=== PATIENT | female | born 1995 | race African-American/Black ===

== ENCOUNTER 2021-07-12 18:34 | Emergency (ER) | payer BC, SELFPAY ==
--- OUTSIDE RECORDS SUMMARY | 2021-07-12 18:37 | XMS REPORT | Continuity of Care Document ---
:1995 Author Organization [facility] Address [address] [place] [address] [address]. [address] [place] [address] Care Team Providers Name Role Phone TARUN Attending Clinician Unavailable TARUN Admitting Clinician Unavailable Payers Payer Name Policy Type Policy Number Effective Date Expiration Date S ource Problems This patient has no known problems. Allergies, Adverse Reactions, Alerts This patient has no known allergies or adverse reactions. Medications Ordered Filled Start Stop Current Ordering Indication Dosage Frequency Signature Comments Components Source Medication Medication Date Date Medication? Clinician (SIG) Name Name hydrocodone hydrocodone No hydrocodon [place] 5 5 e 5 da mg-acetamin mg-acetamin mg-acetami [facility] ophen 325 ophen 325 nophen 325 al mg tablet mg tablet mg tablet Health GIVE 1 GIVE 1 GIVE 1 [facility]re[facility] TABLET BY TABLET BY TABLET BY h MOUTH EVERY MOUTH EVERY MOUTH Program 6 HOURS 6 HOURS EVERY 6 NEEDED NEEDED HOURS (PAIN). (PAIN). NEEDED (PAIN). ibuprofen ibuprofen No ibuprofen [place] 600 mg 600 mg 600 mg da tablet GIVE tablet GIVE tablet [facility] 1 TABLET BY 1 TABLET BY GIVE 1 al MOUTH EVERY MOUTH EVERY TABLET BY Health 6 HOURS 6 HOURS MOUTH Ou treac NEEDED NEEDED EVERY 6 h (PAIN). (PAIN). HOURS Progr am NEEDED (PAIN). Tri-Lo-Esta Tri-Lo-Esta No Tri-Lo-Est [place] rylla 0.18 rylla 0.18 arylla d a mg/0.215 mg/0.215 0.18 [facility] mg/0.25 mg/0.25 mg/0.215 al mg-25 mcg mg-25 mcg mg/0.25 He alth tablet TAKE tablet TAKE mg-25 mcg Outre[facility] 1 TABLET BY 1 TABLET BY tablet h MOUTH EVERY MOUTH EVERY TAKE 1 Program DAY DAY TABLET BY MOUTH EVERY DAY Immunizations Ordered Immunization Filled Immunization Date Status Commen ts Source Name Name COVID-19, mRNA, COVID-19, mRNA, 2021-03-07 Completed Franklin wade LNP-S, PF, 100 LNP-S, PF, 100 16:07:58 [facility] mcg/0.5 mL dose mcg/0.5 mL dose Outr each Program (Moderna) (Moderna) COVID-19, mRNA, COVID-19, mRNA, 2020-05-26 Completed Franklin wade LNP-S, PF, 100 LNP-S, PF, 100 11:14:25 [facility] mcg/0.5 mL dose mcg/0.5 mL dose Outr each Program (Moderna) (Moderna) COVID-19, mRNA, COVID-19, mRNA, 2020-04-27 Completed Franklin wade LNP-S, PF, 100 LNP-S, PF, 100 13:27:16 [facility] mcg/0.5 mL dose mcg/0.5 mL dose Outr each Program (Moderna) (Moderna) Procedures This patient has no known procedures. Encounters Start End Encounter Admission Attending Care Care Encounter Source Date/Time Date/Time Type Type Clinicians Facility Department ID 2021-03-07 2021-03-07 Outpatient [facility] 113 [id number]- [place] 04:19:00 04:19:00 JIMMY [id number] [facility] 2021-03-07 2021-03-07 [facility] [place] - [id number] M [place] 00:00:00 00:00:00 Antwan Brand MD: [address] [facility] [place] [address] h , Ph. Program 2020-05-26 2020-05-26 Outpatient [facility] 113 [id number]- [place] 11:18:00 11:18:00 JIMMY [id number] [facility] 2020-05-26 2020-05-26 [facility] [place] - [id number] M [place] 00:00:00 00:00:00 Antwan Brand MD: [address] [facility] Yifan Cordero [place], [facility] [phone] h , Ph. Program 2020-04-27 2020-04-27 Outpatient [facility] [id number] [place] 02:40:00 02:40:00 JIMMY [id number] [facility] 2020-04-27 2020-04-27 [facility] [place] - [id number] [place] 00:00:00 00:00:00 Antwan Brand MD: [address] [facility] [place]order[place], [place] [address] h , Ph. Program 2020-04-24 2020-04-24 Outpatient [facility] [id number] [place] 01:57:00 01:57:00 JIMMY [id number] [facility] Results This patient has no known results.
--- NOTE | 2021-07-12 19:07 | ER ---
Nurse's Notes [facility] Name: Thea Maldonado Age: 26 yrs Sex: Female : 1995 Arrival Date: 07/12/2021 Time: 18:37 [address] [facility] MD: Diagnosis: Acute suppurative otitis media Presentation: 07/12 18:55 Chief complaint: Patient states: Right ear pain x 2 days and sore throat x 4 days. vg1 Denies NVD. Coronavirus screen: Vaccine status: Patient reports receiving the 2nd dose of the covid vaccine. Client denies travel out of the [place] in the last 14 days. Ebola Screen: Patient denies exposure to infectious person. Patient denies travel to an Ebola-affected area in the 21 days before illness onset. Initial Sepsis Screen: Does the patient meet any 2 criteria? No. Patient's initial sepsis screen is negative. Does the patient have a suspected source of infection? No. Patient's initial sepsis screen is negative. Risk Assessment: Do you want to hurt yourself or someone else? Patient reports no desire to harm self or others. Onset of symptoms was July 09, 2021. 18:55 Method Of Arrival: Ambulatory vg1 18:55 Acuity: GERMÁN 4 vg1 Triage Assessment: 18:56 General: Appears uncomfortable, Behavior is calm, cooperative. Pain: Complains of pain vg1 in right ear and throat Pain currently is 10 out of 10 on a pain scale. EENT: Throat is reddened. 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 - Social history:: Smoking status: Patient denies any tobacco usage or history of. Screenin:21 Abuse screen: Denies threats or abuse. Denies injuries from another. Nutritional ld1 screening: No deficits noted. Tuberculosis screening: No symptoms or risk factors identified. Fall Risk None identified. Assessment: 19:21 Reassessment: see triage assessment. ld1 Vital Signs: 18:55 BP 129 / 89; Pulse 80; Resp 16; Temp 98.8(O); Pulse Ox 100% ; Weight 71.21 kg; Height 5 vg1 ft. 7 in. (170.18 cm); Pain 10/10; 19:21 BP 121 / 88; Pulse 76; Resp 18; Pulse Ox 100% ; ld1 18:55 Body Mass Index 24.59 (71.21 kg, 170.18 cm) vg1 ED Course: 18:37 Patient arrived in ED. rg4 18:56 Triage completed. vg1 18:56 Arm band placed on. vg1 19:00 Strep swab sent to lab. vg1 19:06 Hammad Barraza PA is PHCP. jr8 19:06 Arley Gregg MD is Attending Physician. jr8 19:21 Patient has correct armband on for positive identification. Bed in low position. Call ld1 light in reach. secured entrance monitor on. Pulse ox on. NIBP on. 19:21 No provider procedures requiring assistance completed. Patient did not have IV access ld1 during this emergency room visit. Administered Medications: No medications were administered Medication: 19:21 VIS not applicable for this client. ld1 Outcome: 19:06 Discharge ordered by . jr8 19:21 Discharged to home ambulatory. ld1 19:21 Condition: stable 19:21 Discharge instructions given to patient, Instructed on discharge instructions, follow up and referral plans. medication usage, Demonstrated understanding of instructions, follow-up care, medications, Prescriptions given X 2. 19:22 Patient left the ED. ld1 Signatures: Hammad Barraza PA PA jr8 Pita Mixon rg4 Martha Mixon RN RN vg1 Meghan Wilder RN RN ld1
--- NOTE | 2021-07-12 19:08 | EDPHYS ---
Physician Documentation [facility] Name: Thea Maldonado Age: 26 yrs Sex: Female : 1995 Arrival Date: 07/12/2021 Time: 18:37 Bed Waiting Private MD: ED Physician Arley Gregg HPI: 07/12 19:13 This 26 yrs old Black Female presents to ER via Ambulatory with complaints of Ear Pain. jr8 19:13 The patient presents with pain, tenderness. The complaints affect the right ear. Onset: jr8 The symptoms/episode began/occurred acutely, today. Modifying factors: The symptoms are alleviated by nothing, the symptoms are aggravated by nothing. Associated signs and symptoms: The patient has no apparent associated signs or symptoms. Severity of symptoms: At their worst the symptoms were moderate in the emergency department the symptoms are unchanged. The patient has not experienced similar symptoms in the past. The patient has not recently seen a physician. 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 - Social history:: Smoking status: Patient denies any tobacco usage or history of. ROS: 19:13 Eyes: Negative for injury, pain, redness, and discharge, Neck: Negative for injury, jr8 pain, and swelling, Cardiovascular: Negative for chest pain, palpitations, and edema, Respiratory: Negative for shortness of breath, cough, wheezing, and pleuritic chest pain, Abdomen/GI: Negative for abdominal pain, nausea, vomiting, diarrhea, and constipation, Back: Negative for injury and pain, MS/Extremity: Negative for injury and deformity, Skin: Negative for injury, rash, and discoloration, Neuro: Negative for headache, weakness, numbness, tingling, and seizure. 19:13 ENT: Positive for ear pain. Exam: 19:13 Constitutional: This is a well developed, well nourished patient who is awake, alert, jr8 and in no acute distress. Eyes: Pupils equal round and reactive to light, extra-ocular motions intact. Lids and lashes normal. Conjunctiva and sclera are non-icteric and not injected. Cornea within normal limits. Periorbital areas with no swelling, redness, or edema. Neck: Trachea midline, no thyromegaly or masses palpated, and no cervical lymphadenopathy. Supple, full range of motion without nuchal rigidity, or vertebral point tenderness. No Meningismus. Cardiovascular: Regular rate and rhythm with a normal S1 and S2. No gallops, murmurs, or rubs. Normal PMI, no JVD. No pulse deficits. Respiratory: Lungs have equal breath sounds bilaterally, clear to auscultation and percussion. No rales, rhonchi or wheezes noted. No increased work of breathing, no retractions or nasal flaring. Abdomen/GI: Soft, non-tender, with normal bowel sounds. No distension or tympany. No guarding or rebound. No evidence of tenderness throughout. Skin: Warm, dry with normal turgor. Normal color with no rashes, no lesions, and no evidence of cellulitis. MS/ Extremity: Pulses equal, no cyanosis. Neurovascular intact. Full, normal range of motion. Neuro: Awake and alert, GCS 15, oriented to person, place, time, and situation. Cranial nerves II-XII grossly intact. Motor strength 5/5 in all extremities. Sensory grossly intact. 19:13 ENT: External ear(s): are unremarkable, Ear canal(s): are normal, clear, TM's: dullness, on the right, erythema, that is moderate, on the right, puss behind ear drum, Examination of the other ear shows no obvious abnormality, Nose: is normal, Mouth: is normal, Posterior pharynx: is normal. Vital Signs: 18:55 BP 129 / 89; Pulse 80; Resp 16; Temp 98.8(O); Pulse Ox 100% ; Weight 71.21 kg; Height 5 vg1 ft. 7 in. (170.18 cm); Pain 10/10; 19:21 BP 121 / 88; Pulse 76; Resp 18; Pulse Ox 100% ; ld1 18:55 Body Mass Index 24.59 (71.21 kg, 170.18 cm) vg1 MDM: 19:06 Data reviewed: vital signs, nurses notes, lab test result(s), and as a result, I will jr8 discharge patient. Data interpreted: Pulse oximetry: on room air is 100 %. Interpretation: normal. Counseling: I had a detailed discussion with the patient and/or guardian regarding: the historical points, exam findings, and any diagnostic results supporting the discharge/admit diagnosis, lab results, the need for outpatient follow up, a family practitioner, to return to the emergency department if symptoms worsen or persist or if there are any questions or concerns that arise at home. 19:06 Patient medically screened. jr8 07/12 18:58 Order name: Strep; Complete Time: 19:16 vg1 Administered Medications: No medications were administered Disposition: 07/13 07:08 Co-signature as Attending Physician, Arley Gregg MD. [email or web address] Disposition Summary: 07/12/21 19:06 Discharge Ordered Location: Home jr8 Problem: new jr8 Symptoms: have improved jr8 Condition: Stable jr8 Diagnosis - Acute suppurative otitis media jr8 Followup: jr8 - With: Private Physician - When: 1 week - Reason: Recheck today's complaints, Continuance of care, Re-evaluation by your physician Discharge Instructions: - Discharge Summary Sheet jr8 - Otitis Media, Adult jr8 Forms: - Medication Reconciliation Form jr8 - Thank You Letter jr8 - Antibiotic Education jr8 - Prescription Opioid Use jr8 Prescriptions: - cefdinir 300 mg Oral capsule - take 2 capsule by ORAL route once daily for 7 days; 14 capsule; Refills: 0, jr8 Product Selection Permitted - Ibuprofen 800 mg Oral Tablet - take 1 tablet by ORAL route every 12 hours As needed take with food; 20 tablet; jr8 Refills: 0, Product Selection Permitted Signatures: Dispatcher [employer] EDHammad Cerna PA PA jr8 Martha Mixon RN RN vg1 Arley Gregg MD MD [email or web address]
[2021-07-12 19:28] VITALS: TEMP 98.8; O2SAT 100
[2021-07-12 19:30] VITALS: BP 121/88
== END 2021-07-12 19:22 | disposition home or self-care (01) ==
LOC: ER 18:34
DX: H66.001 Acute suppurative otitis media without spontaneous rupture of ear drum, right ear (principal); Z88.0 Allergy status to penicillin
CPT/HCPCS: 87081; 99284

== ENCOUNTER 2022-12-03 22:34 | Emergency (ER) | payer BC ==
--- OUTSIDE RECORDS SUMMARY | 2022-12-03 22:37 | XMS REPORT | Continuity of Care Document ---
:1995 Author Organization [facility] t Address [address] [place] [address] [place] [address] Care Team Providers Name Role Phone DONNADELIALEONORCrissy Attending Clinician Unavailable INGRIDKYUNGLEONORCrissy Admitting Clinician Unavailable Payers Payer Name Policy [...] DAY DAY TABLET BY MOUTH EVERY DAY Procedures This patient has no known procedures. Encounters Start End Encounter Admission Attending Care Care Encounter Source Date/Time Date/Time Type Type Clinicians Facility Department ID 2021-03-07 2021-03-07 Outpatient [facility] 113 [id number] [place] 04:19:00 04:19:00 JIMMY [id number] [facility] 2021-03-07 2021-03-07 Elsie [facility] [place] - [id number] M [place] 00:00:00 00:00:00 Antwan Brand [facility] [facility] [place] [phone] h , Ph. Program 2020-05-26 2020-05-26 Outpatient [facility]DELIA [facility] 113 [id number] [place] 11:18:00 11:18:00 JIMMY [id number] [facility] 2020-05-26 2020-05-26 Elsie [facility] [place] - [id number] M [place] 00:00:00 00:00:00 Antwan Brand MD: [address] [facility] [place] [address] h , Ph. Program 2020-04-27 2020-04-27 Outpatient [facility]DELIA [facility] 113 [id number] [place] 02:40:00 02:40:00 JIMMY [id number] [facility] 2020-04-27 2020-04-27 Elsie [facility] [place] - [id number] M [place] 00:00:00 00:00:00 Antwan Brand MD: [address] [facility] [place] [address] h , Ph. Program 2020-04-24 2020-04-24 Outpatient [facility]EN_[facility] 113 [id number] [place] 01:57:00 01:57:00 JIMMY [id number] da [facility] Program Results This patient has no known results.
--- NOTE | 2022-12-03 23:18 | EDPHYS ---
Physician Documentation [facility] Name: Thea Maldonado Age: 27 yrs Sex: Female : 1995 Arrival Date: 12/03/2022 Time: 22:34 Bed IW1 Private MD: ED Physician Ruddy Elizondo HPI: 12/03 23:14 This 27 yrs old Black Female presents to ER via Ambulatory with complaints of Ear Pain, ec2 Fever. 23:14 Patient arrives today due to concern for right ear pain. States that she has been ec2 having pain in the right ear, states that it hurts when she chews as well. Patient reports no fevers or chills, no nausea or vomiting. States that she is allergic to penicillin.. 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 - Social history:: Smoking status: Patient denies any tobacco usage or history of. ROS: 23:14 Constitutional: R ear pain ec2 Exam: 23:14 Constitutional: GEN: NAD Head: atraumatic Eyes: EOMI Ears: Right ear with erythema ec2 around the TM, supportive fluid noted. Bulging membrane noted. Left ear clear. CV: regular rate LUNGS: no respiratory distress ABD: non-distended SKIN: no evidence of rashes MSK: no evidence of trauma NEURO: moves all extremities equally Vital Signs: 23:04 BP 137 / 84; Pulse 67; Resp 18; Temp 98.6; Pulse Ox 100% ; Weight 68.95 kg; Pain 9/10; ap3 23:04 Pain Scale: Adult ap3 MDM: 23:02 Patient medically screened. ec2 23:14 Data reviewed: vital signs. ED course: Patient arrives today due to concern for right ec2 ear pain. Examination remarkable for acute otitis media of the right ear. We will start the patient antibiotics, check a current Tylenol and ibuprofen use. I considered other acute process such as sepsis however patient with reassuring vital signs, accordingly will defer any lab work at this time. Patient discharged home, return precautions given.. Administered Medications: 23:17 CANCELLED (Physician Discretion): [id number] mg PO once ec2 23:33 Drug: Clindamycin PO 450 mg PO once Route: PO; ap3 23:34 Follow up: Response: No adverse reaction ap3 Disposition Summary: 12/03/22 23:17 Discharge Ordered Notes: Location: Home ec2 Condition: Stable ec2 Diagnosis - Acute suppurative otitis media ec2 Discharge Instructions: - Discharge Summary Sheet ec2 - Otitis Media, Adult ec2 Forms: - Medication Reconciliation Form ec2 - Thank You Letter ec2 - Antibiotic Education ec2 - Prescription Opioid Use ec2 - Patient Portal Instructions ec2 - Leadership Thank You Letter ec2 Prescriptions: - Clindamycin HCl 150 mg Oral capsule - take 3 capsule ORAL route every 8 hours for 7 days; 56 capsule; Refills: 0, ec2 Product Selection Permitted Signatures: Celina Hernández RN RN ap3 Ruddy Elizondo MD MD ec2 Corrections: (The following items were deleted from the chart) 23:17 23:16 Clindamycin PO 150 mg PO once ordered. ec2 ec2
--- NOTE | 2022-12-03 23:18 | ER ---
Nurse's Notes [facility] Name: Thea Maldonado Age: 27 yrs Sex: Female : 1995 Arrival Date: 12/03/2022 Time: 22:34 Bed IW1 Private MD: Diagnosis: Acute suppurative otitis media Presentation: 12/03 23:04 Chief complaint: Patient states: she is having right ear pain that started yesterday. ap3 patient reports that her pain is currently a 9/10 on the pain scale. Coronavirus screen: At this time, the client does not indicate any symptoms associated with coronavirus-19. Ebola Screen: No symptoms or risks identified at this time. Initial Sepsis Screen: Does the patient meet any 2 criteria? No. Patient's initial sepsis screen is negative. Does the patient have a suspected source of infection? No. Patient's initial sepsis screen is negative. Risk Assessment: Do you want to hurt yourself or someone else? Patient reports no desire to harm self or others. Onset of symptoms was December 02, 2022. 23:04 Method Of Arrival: Ambulatory ap3 23:04 Acuity: GERMÁN 4 ap3 Triage Assessment: 23:05 General: Appears uncomfortable, Behavior is calm, cooperative, appropriate for age. ap3 Neuro: Level of Consciousness is awake, alert, obeys commands, Oriented to person, place, time, situation. Cardiovascular: Patient's skin is warm and dry. Respiratory: Airway is patent Respiratory effort is even, unlabored, Respiratory pattern is regular, symmetrical. 23:12 Pain: Complains of pain in right ear. EENT: Reports pain in right ear. 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 - Social history:: Smoking status: Patient denies any tobacco usage or history of. Screenin:06 [facility] ED Fall Risk Assessment (Adult) History of falling in the last 3 months, ap3 including since admission No falls in past 3 months (0 pts). Abuse screen: Denies threats or abuse. Nutritional screening: No deficits noted. Tuberculosis screening: No symptoms or risk factors identified. Vital Signs: 23:04 BP 137 / 84; Pulse 67; Resp 18; Temp 98.6; Pulse Ox 100% ; Weight 68.95 kg; Pain 9/10; ap3 23:04 Pain Scale: Adult ap3 ED Course: 22:37 Patient arrived in ED. jj6 23:02 Ruddy Elizondo MD is Attending Physician. ec2 23:04 Triage completed. ap3 23:06 Arm band placed on right wrist. ap3 23:34 Provided Education on: discharge instructions. ap3 23:34 Patient has correct armband on for positive identification. Adult w/ patient. ap3 23:34 No provider procedures requiring assistance completed. Patient did not have IV access ap3 during this emergency room visit. Administered Medications: 23:17 CANCELLED (Physician Discretion): [id number] mg PO once ec2 23:33 Drug: Clindamycin PO 450 mg PO once Route: PO; ap3 23:34 Follow up: Response: No adverse reaction ap3 Medication: 23:34 VIS not applicable for this client. ap3 Outcome: 23:17 Discharge ordered by . ec2 23:34 Discharged to home ambulatory, with family, ap3 23:34 Condition: good 23:34 Discharge instructions given to patient, Instructed on discharge instructions, follow up and referral plans. medication usage, Demonstrated understanding of instructions, follow-up care, medications, Prescriptions given X 1, 23:34 Patient left the ED. ap3 Signatures: Celina Hernández RN RN ap3 Modesta Gonzales [facility] Ruddy Elizondo MD MD ec2 Corrections: (The following items were deleted from the chart) 23:14 23:05 Pain: Complains of pain in left ear Pain currently is 9 out of 10 on a pain ap3 scale. Pain began 1 day ago. ap3 23:14 23:05 EENT: Reports pain in left ear ap3 ap3
[2022-12-04 00:42] VITALS: BP 137/84; TEMP 98.6; O2SAT 100
== END 2022-12-03 23:34 | disposition home or self-care (01) ==
LOC: ER 22:34
DX: H66.001 Acute suppurative otitis media without spontaneous rupture of ear drum, right ear (principal); Z88.0 Allergy status to penicillin; Z88.1 Allergy status to other antibiotic agents